=== PATIENT | male | born 1995 | race Two or more races ===

== ENCOUNTER 2017-04-12 00:36 | Emergency (ER) | payer MEDICAID ==
--- NOTE | 2017-04-12 00:40 | ED PDOC ---
HPI: Psych/Substance Abuse Time Seen by Provider: 04/12/17 00:38 Chief Complaint (Provider): etoh History Per: Patient, EMS Additional Complaint(s): 21-year-old male presents to emergency department acutely intoxicated. Patient was found asleep on the street and was brought in by ambulance. Patient admits to drinking, he denies drug use and offers no acute medical complaints. Past Medical History Reviewed: Historical Data, Nursing Documentation, Vital Signs - Medical History PMH: No Chronic Diseases - Surgical History Surgical History: No Surg Hx - Family History Family History: States: No Known Family Hx - Living Arrangements Living Arrangements: With Friends/Others - Social History Current smoker - smoking cessation education provided: No Alcohol: Social Drugs: Denies - Allergies Allergies/Adverse Reactions: Allergies Allergy/AdvReac Type Severity Reaction Status Date / Time No Known Allergies Allergy Verified 04/12/17 00:44 Review of Systems ROS Statement: Except As Marked, All Systems Reviewed And Found Negative Psych: Positive for: Other (etoh) Physical Exam - Reviewed Nursing Documentation Reviewed: Yes Vital Signs Reviewed: Yes - Physical Exam Appears: Positive for: Well, Non-toxic, No Acute Distress Skin: Negative for: Rash Eye Exam: Positive for: Normal appearance Cardiovascular/Chest: Positive for: Regular Rate, Rhythm Respiratory: Positive for: Normal Breath Sounds Neurologic/Psych: Positive for: Alert, Other (intoxicated, answers some questions appropriately) - Laboratory Results Result Diagrams: 04/12/17 01:26 04/12/17 01:26 - ECG O2 Sat by Pulse Oximetry: 98 Pulse Ox Interpretation: Normal Medical Decision Making Medical Decision Makin21 year old acutely intoxicated male Plan: BAL CBC CMP Fingerstick: 122 4 mg IV zofran given as patient states he feels nauseous and is gagging. 3:30 am - K is low at 3.0. Oral 40 meq Kdur ordered. 4:45 am - Patient is more awake and alert. Patient given additional 4 mg IV zofran for persistent nausea. 5:36 am - patient is awake and alert, has steady gait, tolerated juice and applesauce with no further emesis. Patient states he feels better. He is stable for discharge. Disposition - Clinical Impression Clinical Impression: Alcohol intoxication - Patient ED Disposition Is Patient to be Admitted: No Counseled Patient/Family Regarding: Studies Performed, Diagnosis, Need For Followup - Disposition Referrals: [facility] [Outside] Disposition: Routine/Home Disposition Time: 05:37 Condition: STABLE Additional Instructions: Follow up as needed with primary care doctor. Instructions: Alcohol Intoxication (ED)
[2017-04-12 00:44] VITALS: RESP 16
[2017-04-12 01:29] LABS: BASO % 0.2 % (0.0-2.0); EOS % 0.4 % (0.0-4.0); HEMATOCRIT 43.7 % (35.0-51.0); LYMPH # 5.3 K/uL (1.0-4.3); LYMPH % 51.9 % (20.0-40.0); MEAN CELL VOLUME 87.6 fl (80.0-94.0); MEAN CORPUSCULAR HEMOGLOBIN 28.8 pg (27.0-31.0); MEAN CORPUSCULAR HGB CONC 32.9 g/dL (33.0-37.0); MEAN PLATELET VOLUME 10.7 fl (7.2-11.7); MONO # 0.8 K/uL (0.0-0.8); MONO % 7.6 % (0.0-10.0); NEUT # 4.1 K/uL (1.8-7.0); NEUT % 39.9 % (50.0-75.0); NRBC % 0.1 % (0.0-0.0); RED CELL DISTRIBUTION WIDTH 13.8 % (11.5-14.5); WHITE BLOOD COUNT 10.2 K/uL (4.8-10.8)
[2017-04-12 01:39] LABS: ALB/GLOB RATIO 1.6 (1.0-2.1); ALCOHOL SERUM 176 mg/dl (0-10); ALKALINE PHOSPHATASE 117 U/L (38-126); ALT/SGPT 33 U/L (21-72); AST/SGOT 30 U/L (17-59); BILIRUBIN,TOTAL 0.5 mg/dl (0.2-1.3); BLOOD UREA NITROGEN 12 mg/dl (9-20); CALCIUM 9.3 mg/dL (8.4-10.2); CARBON DIOXIDE 19 mmol/L (22-30); CHLORIDE 109 mmol/L (98-107); GFR AFRICAN-AMERICAN > 60; GLUCOSE,RANDOM 117 mg/dL (75-110); SODIUM 148 mmol/l (132-148); TOTAL PROTEIN 7.9 G/DL (6.3-8.2)
[2017-04-12] MEDS ORDERED: Potassium Chloride 20 mEq ER Tab PO STA (01:44)
[2017-04-12] MEDS ORDERED: Potassium Chloride 20 mEq ER Tab PO ONE (05:28)
[2017-04-12 05:52] VITALS: BP 117/82; PULSE 89; TEMP 97.9; O2SAT 99
== END 2017-04-12 05:51 | disposition home or self-care (01) ==
LOC: H.ER 00:36 → EDBD 00:36 → H.ER 05:51
DX: F10.129 Alcohol abuse with intoxication, unspecified (principal)
CPT/HCPCS: 80053; 80320; 85025; 96374; 96376; 99283; J2405